=== PATIENT | female | born 1975 | race Caucasian/White ===

== ENCOUNTER 2019-01-01 05:19 | Observation (INO) | payer OTHER ==
--- NOTE | 2018-12-30 14:33 | PREOPHP ---
DATE OF ADMISSION: 12/31/2018 The patient is coming for surgery on . The patient is coming for anterior repair, possible posterior repair with dermis graft. HISTORY OF PRESENT ILLNESS: This patient is a 43-year-old female, 4, para 2, abortions 2. T he patient is on prednisone and Baclofen due to arthritis with a history of hypertension on her famil y side and diabetes with a history of having had a vaginal hysterectomy with a posterior colporrhaphy in 2015. She had an A and P repair and sling and graft in 2014. This patient already having compli cations of mixed incontinence again with the prolapse of the bladder again. She is going to have a b ladder repair again due to a grade III-IV cystourethrocele and a failed sling with a mixed incontinen ce and constipation. She is undergoing an anterior repair, possible posterior repair. Her past hist ory is remarkable for this procedure already done once and failed in 2014. Her complaint is of losin g of urine with pelvic pressure and a mass coming out of herself with loss of urine. The patient had been originally scheduled for an uphold graft which she is the deeper structure left of the pelvic a liana since the sling has been removed from the market. We will just redo an anterior repair and possi maría do a sling again and possibly do a posterior repair. It depends on the findings under general an esthesia after the tissue was relaxed. REVIEW OF SYSTEMS: Negative for heart disease. Negative for lung disease, negative for GI disease e xcept for constipation. No endocrine disease. 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 FAMILY HISTORY: Hypertension. She had a history of a wrist surgery, besides the vaginal hysterectom y, posterior repair and previous A and P repair and sling. ALLERGIES: The patient does not have any allergies. PHYSICAL EXAMINATION: VITAL SIGNS: The patient's vital signs she is 5 foot 7 inches. She weighs 178 pounds and blood pres sure is 118/79, pulse is 80, respirations 16. HEAD AND NECK: Normal. CHEST: Clear. HEART: Normal sinus rhythm. LUNGS: Clear. BREASTS: Soft, nontender, no masses. ABDOMEN: Soft, nontender, no masses. PELVIC: With a large cystourethrocele, grade III-IV, rectocele is mild but it will be evaluated afte r anesthesia. EXTREMITIES: Normal with normal pulses and no edema. DIAGNOSES: 1. 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 2. Mixed incontinence, constipation, previous vaginal hysterectomy, A and P repair once and posterio r colporrhaphy two times. 3. Failed sling. PLAN: She will have anterior repair, possible sling, possible posterior repair. She has been advise d of the possible complications of the procedure with her alternatives and options. Written informat ion was provided. She had no more questions and agreed to go ahead with the procedure with full unde rstanding and no more questions. Dictated By: DEV GRANT/SHARMILA Conf#: [id number] DID#: [id number]
[2019-01-01] VITALS (26 sets, daily range): BP systolic 94–123; BP diastolic 52–73; PULSE 49–82; RESP 8–29; Ht 170.2 cm; Wt 81.3 kg
[~2019-01-01] VITALS: Ht 170.2 cm; Wt 81.3 kg
[~2019-01-01 05:19] MED LIST: BACL10TA PO; MELO15TA30 PO; OMEP40CA6 PO; PRED10TA PO
[2019-01-01] MEDS ORDERED: DEXTROSE 5%-0.9% NACL 1,000 ML IV SCH (06:00)
[2019-01-01] MEDS ORDERED: CEFAZOLIN 2 GM/50 ML (PMX) 50 ML IVPB ONE (06:00)
[2019-01-01] MEDS ORDERED: ACETAMINOPHEN 500 MG TAB PO ONE (06:30)
[2019-01-01] MEDS ORDERED: POLYMYXIN/BACITRACIN 1L IRRIG ONE (06:58)
[2019-01-01] MEDS ORDERED: BUPIVACAINE 0.25%/EPI (SDV) 30 ML INJ ONE (06:58)
--- NOTE | 2019-01-01 07:03 | PREAC ---
Date/Time of Note Date/Time of Note DATE: 01/01/19 TIME: 07:02 Anesthesia Eval and Record Evaluation Time Pre-Procedure Interview DATE: 01/01/19 TIME: 07:02 Age 43 Sex female NPO: 8 hrs Preoperative diagnosis urinary incontinence Planned procedure anterior repair poss posterior repair w/' sling Past Medical History Past Medical History: None Surgery & Anesthesia Issues No known issue (hysterectomy, L wrist surgery) Meds Anticoagulation: No Beta Kobe within 24 hr: No Reason Beta Kobe not given: Pt. not on B-Kobe No Active Prescriptions or Reported Meds Current Medications Dextrose/Sodium Chloride 1,000 ml @ 125 mls/hr Q8H IV ; Start 01/01/19 at 06:00; Stop 01/01/19 at 20:00 Meds reviewed: Yes Allergies Coded Allergies: No Known Allergy (Unverified , 01/01/19) Allergies Reviewed: Yes Labs/Studies Labs Reviewed: Reviewed by anesthesiologist test: Negative Pre-procedure Exam Last vitals Vital Signs Date Temp Pulse Resp B/P (MAP) Pulse Ox O2 O2 Flow FiO2 Time Delivery Rate 01/01/19 97.1 06:17 01/01/19 65 18 100/56 97 Room Air 06:09 (71) Airway: Adequate mouth opening, Adequate thyromental dist Mallampati: Mallampati II Teeth: Normal (braces in place) Lung: Normal Heart: Normal ASA Physical Status ASA physical status: 1 Emergency: None Planned Anesthetic General/MAC: ETT Pre-operative Attestations Prior to commencing anesthesia and surgery, the patient was re-evaluated, there was verification of: *The patient's identity *The results of appropriate recent lab work and preoperative vital signs *The above evaluation not changing prior to induction *Anesthetic plan, risk benefits, alternative and complications discussed with patient/family; questions answered; patient/family understands, accepts and wishes to proceed. LOIS HAAS Jan 01, 2019 07:03
[2019-01-01] MEDS ORDERED: ONDANSETRON 4 MG INJ ONE (07:24)
[2019-01-01] MEDS ORDERED: ROCURONIUM 50 MG INJ ONE (07:24)
[2019-01-01] MEDS ORDERED: PROPOFOL 40 ML ONE (07:24)
[2019-01-01] MEDS ORDERED: FENTAnyl 50 MCG/ML VIAL ONE (07:24)
[2019-01-01] MEDS ORDERED: GLYCOPYRROLATE 0.4 MG INJ ONE (07:24)
[2019-01-01] MEDS ORDERED: LIDOCAINE 2% (SDV) 5 ML INJ ONE (07:24)
[2019-01-01] MEDS ORDERED: FAMOTIDINE 20 MG INJ ONE (07:24)
[2019-01-01] MEDS ORDERED: MIDAZOLAM 1 MG/ML 2 ML INJ ONE (07:24)
[2019-01-01] MEDS ORDERED: CEFAZOLIN 1 GM INJ ONE (07:24)
[2019-01-01] MEDS ORDERED: DEXAMETHASONE 4 MG/ML 5 ML INJ ONE (07:25)
[2019-01-01] MEDS ORDERED: KETAMINE (50 MG/ML) 10 ML VIAL ONE (07:28)
[2019-01-01] MEDS ORDERED: hydrALAzine 20 MG INJ IV PRN (07:30)
[2019-01-01] MEDS ORDERED: ALBUTEROL 0.083% (NEB) 2.5 MG/3 ML AMP HHN PRN (07:30)
[2019-01-01] MEDS ORDERED: OXYCODONE/ACETAMINOPHEN (5/325) TAB PO PRN ×2 (07:30)
[2019-01-01] MEDS: SOD CHLORIDE 0.9% 1,000 ML IV SCH (07:30)
[2019-01-01] MEDS ORDERED: DIPHENHYDRAMINE 50 MG INJ IV PRN (07:30)
[2019-01-01] MEDS ORDERED: MEPERIDINE 25 MG INJ IV PRN (07:30)
[2019-01-01] MEDS ORDERED: LABETALOL HCL 20MG INJ IV PRN (07:30)
[2019-01-01] MEDS ORDERED: morphine 2 MG INJ IV PRN ×2 (07:30)
[2019-01-01] MEDS ORDERED: ONDANSETRON 4 MG INJ IV PRN (07:30)
[2019-01-01] MEDS ORDERED: FENTAnyl 50 MCG/ML VIAL IV PRN ×2 (07:30)
[2019-01-01] MEDS ORDERED: HYDROmorphONE 1 MG/5 ML IV SYRINGE IV PRN ×3 (07:30)
[2019-01-01] MEDS ORDERED: EPHEDrine 25 MG/5 ML SYG IV PRN (07:30)
--- NOTE | 2019-01-01 07:48 | HPN ---
Date/Time of Note Date/Time of Note DATE: 01/01/19 TIME: 07:48 Interval H&P Admission Note Pt. seen H&P reviewed: No system changes DEV HOWARD MD Jan 01, 2019 07:48
[2019-01-01] MEDS ORDERED: PHENYLephrine (100 MCG/ML) 10ML SYG ONE (08:44)
[2019-01-01] MEDS ORDERED: THROMBIN 5000 UNIT (RECOTHROM) VIAL ONE (09:33)
[2019-01-01] MEDS ORDERED: SUGAMMADEX SODIUM 200 MG/2 ML VIAL IV ONE (10:05)
[2019-01-01] MEDS ORDERED: HYDROCODONE/APAP (5/325) TAB PO PRN (10:30)
[2019-01-01] MEDS ORDERED: ONDANSETRON INJ 6 MG in DEXTROSE 5% 50 ML IVPB PRN (10:30)
[2019-01-01] MEDS ORDERED: ZOLPIDEM 5 MG TAB PO PRN (10:30)
[2019-01-01] MEDS ORDERED: DIPHENHYDRAMINE 50 MG CAP PO PRN (10:30)
--- NOTE | 2019-01-01 10:33 | PAC ---
Date/Time of Note Date/Time of Note DATE: 01/01/19 TIME: 10:32 Post-Anesthesia Notes Post-Anesthesia Note Last documented vital signs Vital Signs Date Temp Pulse Resp B/P (MAP) Pulse Ox O2 O2 Flow FiO2 Time Delivery Rate 01/01/19 97.1 99.5 76 18 106/68 100 face 06:17 102 mask 6L 7 01/01/19 65 18 100/56 97 Room Air 06:09 (71) Activity: WNL Respiratory function: WNL Cardiovascular function: WNL Mental status: Baseline Pain reasonably controlled: Yes Hydration appropriate: Yes Nausea/Vomiting absent: Yes LIOS HAAS Jan 01, 2019 10:33
--- NOTE | 2019-01-01 10:40 | SIPON ---
Date/Time of Note Date/Time of Note DATE: 01/01/19 TIME: 10:33 Operative Report Preoperative Diagnosis Recurrent cystourethrocele grade 3 through 4 with mixed incontinence Pelvic prolapse grade 3-4 Previous vaginal hysterectomy and A&P repair and sling Postoperative Diagnosis Same Operation/Procedure Performed Anterior colporrhaphy, suburethral sling procedure. 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
[2019-01-01] MEDS: HYDROCODONE/APAP (5/325) TAB PO PRN ×2 (12:46→17:39)
--- NOTE | 2019-01-01 13:05 | OPR ---
DATE OF OPERATION: 01/01/2019 OPERATION PERFORMED: Anterior colporrhaphy, suburethral sling procedure, Obtryx sling and [place] dermi s graft and cystoscopy. SURGEON: Dev Siegel MD ANESTHESIA: General. ANESTHESIOLOGIST: Brigid Mercer NP COMPLICATIONS: None. PROCEDURE: The patient was given general anesthesia, placed in the lithotomy position. The perineal and vaginal area were prepped and draped and a Sr catheter was placed in the bladder. A midline incision was made all the way from 2 cm below the urethral meatus to the vaginal cuff. Injection of Xylocaine and epinephrine was given underneath the vaginal mucosa around the maritza-bladder fascia. Th e separation of the cystocele was done with Metzenbaum all the way to the side as well to the obturat or internal muscle. There was a lot of scar tissue from previous surgeries. We encountered the prev ious sling that we already cut. The bladder was plicated with interrupted sutures with 2-0 Vicryl an d was lifted at the fundal area very well. There was also a plication around the urethral meatus and the dissection was done laterally and the sling was started by looking up the area for insertion 2 c m below the urethral meatus and at the level of the clitoris, we found the obturator membrane and by palpation 2 cm below the adductor longus tendon as well and a brooke was done on the skin incision was done and the needle was passed through the obturator canal perforating the membrane and reaching the paraurethral area and the sling was attached to both needles and the arms of the sling were passed th rough when the needle was retrieved back and the adjustment of the sling was done after a piece of Ax is dermis was placed in the mid urethral area and was fixed to the lateral fascia with 2-0 Vicryl sut ure. The sling was applied against the [place] dermis and the extra arms that was remnant up through th e skin was cut at the level of the skin. Dermabond was placed in both areas. The Surgiflo or FloSea l equivalent was used on the area of the internal obturator muscle and this was done in both sides to control some venous bleeding and a piece of Surgicel was placed as well. The vagina was closed with out trimming. Only a small trimming was done very much up the vaginal cuff. The vagina was closed w ith 2-[address] the way vertically with single stitches and hemostasis was achieved. The cystoscopy was done by removing the Sr catheter and the bladder apparently was intact in all the l almazan and urethral areas as well. The Sr catheter was reinserted and the Xeroform gauze was place d in the vagina. The patient tolerated the procedure well and left the OR awake and stable. Sponge counts and instruments counts were correct. Intravenous antibiotics were given for prophylaxis. Blo od loss was minimal, about 50 mL, and the urine was clear at the end of the procedure. Dictated By: DEV GRANT/SHARMILA Conf#: [id number] DID#: [id number]
[2019-01-01] MEDS: KETOROLAC 30 MG INJ IV SCH ×2 (13:34→20:24)
[2019-01-01] MEDS: METOCLOPRAMIDE 10 MG TAB PO SCH ×2 (13:36→18:51)
[2019-01-01] MEDS ORDERED: CEFAZOLIN 1 GM/50 ML (PMX) 50 ML IVPB SCH (14:00)
[2019-01-01] MEDS: LACTATED RINGER'S 1,000 ML IV SCH ×2 (17:35→18:26)
[2019-01-01] MEDS: CEFAZOLIN 1 GM/50 ML (PMX) 50 ML IVPB SCH (17:41)
--- NOTE | 2019-01-01 20:55 | RADRPT ---
Vent Rate: 56 bpm RR Interval: 1076 msec WI Interval: 139 msec QRS Duration: 87 msec QT Interval: 471 msec QTC Interval: 454 msec P-R-T [place]: 36 - 32 - 40 degrees Sinus rhythm...normal P axis, V-rate 50- 99 Electronically Signed By: Isak Carranza
[2019-01-02 00:21] VITALS: BP 103/61; PULSE 60; RESP 17
[2019-01-02] MEDS: CEFAZOLIN 1 GM/50 ML (PMX) 50 ML IVPB SCH ×2 (00:23→09:02)
[2019-01-02] MEDS: METOCLOPRAMIDE 10 MG TAB PO SCH ×3 (00:24→12:48)
[2019-01-02] MEDS: HYDROCODONE/APAP (5/325) TAB PO PRN ×2 (00:27→06:13)
[2019-01-02] MEDS: LACTATED RINGER'S 1,000 ML IV SCH ×2 (02:26→10:26)
[2019-01-02] MEDS: KETOROLAC 30 MG INJ IV SCH ×2 (02:50→09:05)
[2019-01-02] MEDS ORDERED: PANTOPRAZOLE (EC) 40 MG TAB PO SCH (06:00)
[2019-01-02] MEDS: SOD CHLORIDE 0.9% 1,000 ML IV SCH (07:30)
[2019-01-02 07:39] VITALS: BP 98/57; PULSE 70; RESP 18
[2019-01-02] MEDS ORDERED: ESTRADIOL VALERATE 20 MG/0.5 ML INJ IM ONE (12:00)
--- NOTE | 2019-01-02 12:01 | PD.PPDC ---
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
--- NOTE | 2019-01-02 12:14 | DS ---
Date/Time of Note Date/Time of Note DATE: 01/02/19 TIME: 12:03 Discharge Summary Admission/Discharge Info Admit Date/Time Jan 01, 2019 at 10:26 Discharge Date/Time January 02, 2019 Discharge Diagnosis Large cystourethrocele grade 3 through 4 recurrent with mixed incontinence Patient Condition: Good Procedures Anterior colporrhaphy. Suburethral sling [place] dermis graft Colposcopy Hx of Present Illness 43 years old female with a history of a previous vaginal hysterectomy and anterior and posterior repair and sling. The patient started having mixed incontinence with loss of urine with Valsalva maneuver during sex with any strong exercise running laughing coughing and with urgency. A recurrent anterior cystourethrocele was diagnosed grade 3-4. She complains of chief complaint of mild constipation with only mild rectocele. She was advised for a colporrhaphy again with another sling and graft and she was given instructions of how to take care of herself because lifestyle will make this second operation recurrent again if she does not avoid lifting or pushing doing maneuvers that produce intra-abdominal pressure. She underwent the procedure yesterday and we kept her for observation for bleeding. Hospital Course Day 1 postop. The patient had an anterior repair with a sling and graft. The posterior repair was not done since we found that the rectocele was not major, was only mild and possibly to avoid major surgery particularly if it is not necessary She is afebrile feeling good, Tolerating diet. Not in pain Abdomen soft passing gases. Vaginal packing removed with no active bleeding. Patient is stable to go home with a catheter and instructions of how to handle the catheter and to see me in the office in a week to remove the catheter. Pain meds were provided. She is advised what to do and not to do at home call me if she needs something or have any problem Laboratory testing were near normal. Physical examination was noncontributory at this time. Home Meds Reported Medications Omeprazole* (Omeprazole*) 40 Mg Capsule.dr, 40 MG PO DAILY, #30 CAP 01/01/19 Meloxicam* (Mobic*) 15 Mg Tablet, 15 MG PO DAILY, #30 TAB 01/01/19 Prednisone* (Prednisone*) 10 Mg Tab, 10 MG PO DAILY, TAB 01/01/19 Baclofen* (Baclofen*) 10 Mg Tablet, 10 MG PO BID, TAB 01/01/19 Primary Care Provider Care Physician No Primary Time spent on discharge: < 30 minutes Pending Labs Laboratory Tests Test 01/02/19 04:33 01/02/19 07:35 White Blood Count 12.8 10^3/ul (4.8-10.8) Red Blood Count 3.48 10^6/ul (4.20-5.40) Hemoglobin 10.2 g/dl (12.0-16.0) Hematocrit 32.1 % (37.0-47.0) Mean Corpuscular Volume 92.2 fl (82.0-101.0) Mean Corpuscular Hemoglobin 29.3 pg (29.0-33.0) Mean Corpuscular 31.8 g/dl (32.0-37.0) Hemoglobin Concent Red Cell Distribution Width 13.1 % (11.5-14.5) Platelet Count 322 10^3/UL (140-415) Mean Platelet Volume 9.9 fl (7.4-10.4) Immature Granulocytes % 0.300 % (0.001-0.429) Neutrophils % 78.1 % (39.0-77.0) Lymphocytes % 12.7 % (15.0-51.0) Monocytes % 8.6 % (0.0-11.0) Eosinophils % 0.1 % (0.0-7.0) Basophils % 0.2 % (0.0-2.0) Nucleated Red Blood Cells % 0.0 /100WBC (0.0-0.0) Immature Granulocytes # 0.040 10^3/ul (0.0-0.031) Neutrophils # 10.0 10^3/ul (1.6-7.5) Lymphocytes # 1.6 10^3/ul (0.8-2.9) Monocytes # 1.1 10^3/ul (0.3-0.9) Eosinophils # 0.0 10^3/ul (0.0-0.5) Basophils # 0.0 10^3/ul (0.0-0.1) Nucleated Red Blood Cells # 0.0 10^3/ul (0.0-0.0) Sodium Level 140 mmol/L (135-144) Potassium Level 3.9 mmol/L (3.5-5.1) Chloride Level 107 mmol/L (97-110) Carbon Dioxide Level 28 mmol/L (21-31) Anion Gap 5 (5-13) Blood Urea Nitrogen 9 mg/dl (7-20) Creatinine 0.43 mg/dl (0.44-1.00) Lab Scanned Report REFERENCE LAB [id number] DEV HOWARD MD Jan 02, 2019 12:14
== END 2019-01-02 14:12 | disposition home or self-care (01) ==
LOC: SDS 05:19 → REC 10:26 → MS1 11:48
PROVIDERS: ADMIT Obstetrics & Gynecology; ATTEND Obstetrics & Gynecology
DX: N81.10 Cystocele, unspecified (principal); N39.46 Mixed incontinence
CPT/HCPCS: 57240; 57288; 80051; 82565; 84520; 85025; 87086; 93005; C1771; J0690; J1100; J1885; J2175; J2250; J2370; J2405; J3010; J7030; J7120; Z7500; Z7512; Z7610; G0378; J1380